=== PATIENT | female | born 1980 | race Caucasian/White ===

== ENCOUNTER 2018-11-12 01:37 | Emergency (ER) | payer BC ==
[2018-11-12] MEDS ORDERED: Fluorescein Sodium TOPICAL* 1 MG TEST STRIP OPHTHALMIC ONE (01:51)
[2018-11-12] MEDS ORDERED: Tetracaine 0.5% OPTH.SOL 4 ML* 1 DROP BTL ONE (01:56)
[2018-11-12] MEDS ORDERED: Tetracaine 0.5% OPTH.SOL 4 ML* 1 DROP BTL LEFT EYE SCH (02:00)
--- NOTE | 2018-11-12 02:05 | ED ---
Throat Pain/Nasal Congestion - HPI Summary HPI Summary: Pt is a 38 y/o F presenting to the ED with a chief complaint of R eye pain. She states she was cleaning out her garage, her eye became pruritic for a minute, so she itched it, and it later became incredibly painful. She tried to go to sleep, however she could not fall asleep due to the sharp, shooting pain through her R eye. She also notes a runny nose. - History of Current Complaint Chief Complaint: EDEyeProblem Time Seen by Provider: 11/12/18 01:55 Hx Obtained From: Patient Onset/Duration: Sudden Onset, Lasting Hours, Still Present Severity: Severe Associated Signs And Symptoms: Positive: Negative Cough: None - Allergies/Home Medications Allergies/Adverse Reactions: Allergies Allergy/AdvReac Type Severity Reaction Status Date / Time No Known Allergies Allergy Verified 11/12/18 01:40 PMH/Surg Hx/FS Hx/Imm Hx Previously Healthy: Yes Cardiovascular History: Denies: Hx Hypertension Sensory History: Reports: Hx Contacts or Glasses Opthamlomology History: Reports: Hx Contacts or Glasses Infectious Disease History: No Infectious Disease History: Reports: Traveled Outside the [place] in Last 30 Days - Family History Known Family History: Negative: Cardiac Disease - Social History Occupation: Employed Full-time Lives: With Family Hx Substance Use: No Substance Use Type: Reports: None Review of Systems Positive: Other - R eye pain, possible foreign body Positive: Nasal Discharge All Other Systems Reviewed And Are Negative: Yes Physical Exam - Summary Physical Exam Summary: Appearance: Well-appearing, Well-nourished, lying in bed comfortably Skin: Warm, dry, no obvious rash Eyes: Conjunctiva of R eye is injected. On fluoroscene exam, the pt has no corneal abrasion. On eversion of upper eyelid, there is no sign of foreign body. ENT: mucous membranes moist, pharynx appears normal Neck: Supple, nontender Respiratory: Clear to auscultation, no signs of respiratory distress Cardiovascular: Normal S1, S2. No murmurs. Normal distal pulses in tibial and radial bilaterally. Abdomen: Soft, nontender, normal active bowel sounds present Musculoskeletal: Normal, Strength/ROM Intact Neurological: A&Ox3, awake and alert, mentation is normal, speech is fluent and appropriate Psychiatric: affect is normal, does not appear anxious or depressed Triage Information Reviewed: Yes Vital Signs On Initial Exam: Initial Vitals Temp Pulse Resp BP Pulse Ox 98.5 F 64 16 132/87 97 11/12/18 01:39 11/12/18 01:39 11/12/18 01:39 11/12/18 01:39 11/12/18 01:39 Vital Signs Reviewed: Yes Diagnostics - Vital Signs Vital Signs Temp Pulse Resp BP Pulse Ox 11/12/18 01:39 98.5 F 64 16 132/87 97 - Laboratory Lab Statement: Any lab studies that have been ordered have been reviewed, and results considered in the medical decision making process. EENT Course/Dx - Course Course Of Treatment: Pt is a 38 y/o F presenting to the ED with a chief complaint of R eye pain. She tried to go to sleep, however she could not fall asleep due to the sharp, shooting pain through her R eye. She also notes a runny nose. On exam, conjunctiva of R eye is injected. On fluoroscene exam, the pt has no corneal abrasion. On eversion of upper eyelid, there is no sign of foreign body. The pt will be d/c'ed with dx of conjunctivitus and instructed to f/u with her eye doctor as soon as possible. She is stable and agreeable with this plan. - Diagnoses Provider Diagnoses: Conjunctivitis Discharge ED - Sign-Out/Discharge Documenting (check all that apply): Patient Departure Patient Received Moderate/Deep Sedation with Procedure: No - Discharge Plan Condition: Good Disposition: HOME Patient Education Materials: Conjunctivitis (ED) Additional Instructions: Contact your eye doctor in the morning to be seen later in the day. The exact cause of your eye problem tonight is not entirely clear, so I think you need a more comprehensive exam by an eye professional. In the interim you can use a drop or two of the solution to help with the discomfort, but for no longer than 12 to 24 hours. Also use the antibiotic eye ointment every 4-6 hrs in case this is a bacterial infection in the eye. - Billing Disposition and Condition Condition: GOOD Disposition: Home - Attestation Statements Document Initiated by Scribe: Yes Documenting Scribe: Ilda Mills Provider For Whom Scribe is Documenting (Include Credential): Rolando To MD. Scribe Attestation: I, Ilda Mills, scribed for Rolando To MD. on 11/15/18 at 1908. Scribe Documentation Reviewed: Yes Provider Attestation: The documentation as recorded by the scribe, Ilda Mills accurately reflects the service I personally performed and the decisions made by me, Rolando To MD. Status of Scribe Document: Viewed
[2018-11-12 02:15] VITALS: BP 0/0
[2018-11-12] MEDS ORDERED: Erythromycin OPTH OINT* APPLIC OINT RIGHT EYE SCH (03:00)
== END 2018-11-12 02:14 | disposition home or self-care (01) ==
LOC: ED 01:37
DX: H10.9 Unspecified conjunctivitis (principal)
CPT/HCPCS: 99281; A9270-GY